=== PATIENT | male | born 1965 | race Two or more races ===

== ENCOUNTER 2024-04-28 05:27 | Day surgery (SDC) | payer OTHER ==
[2024-04-27 08:42] VITALS: BMI 30.4
[2024-04-28] MEDS: ACETAMINOPHEN 325 MG TABLET (FP) ONE (12:32)
[2024-04-28] MEDS ORDERED: ACETAMINOPHEN 325 MG TABLET (FP) PO ONE (13:00)
[2024-04-28] MEDS ORDERED: DEXTROSE 5%-0.45% SALINE 1,000 ML IV SCH (13:30)
[2024-04-28] MEDS ORDERED: PROPOFOL 20 ML ONE (13:42)
[2024-04-28] MEDS ORDERED: MIDAZOLAM HCL 2 MG/2 ML SINGLE DOSE VIAL ONE (13:42)
[2024-04-28] MEDS ORDERED: LIDOCAINE HCL/PF 2% SDV 5ML VIAL ONE (13:42)
[2024-04-28] MEDS: ceFAZolin SODIUM 1 GM VIAL IVPB ONE (14:06)
[2024-04-28] MEDS ORDERED: KETOROLAC TROMETHAMINE 30 MG/1 ML VIAL ONE (14:08)
[2024-04-28] MEDS ORDERED: ONDANSETRON 4 MG/2 ML VIAL ONE (14:08)
[2024-04-28] MEDS ORDERED: ceFAZolin SODIUM 1 GM VIAL ONE (14:08)
[2024-04-28] MEDS ORDERED: DEXAMETHASONE SOD PHOSPHATE 4 MG/1 ML VIAL ONE (14:08)
[2024-04-28] MEDS ORDERED: NALOXONE HCL 0.4 MG/ML VIAL ONE (15:10)
[2024-04-28] MEDS: LACTATED RINGERS SOLUTION 1,000 ML IV SCH (15:15)
[2024-04-28] MEDS ORDERED: ONDANSETRON 4 MG/2 ML VIAL IVPUSH PRN (15:18)
[2024-04-28] MEDS ORDERED: oxyCODONE HCL 5 MG TABLET PO PRN ×2 (15:18)
[2024-04-28] MEDS ORDERED: PROMETHAZINE HCL 25 MG/1 ML VIAL IVPB PRN (15:18)
[2024-04-28] MEDS: ACETAMINOPHEN 1000 MG/100 ML BAG IVPB ONE (16:38)
[2024-04-28 17:46] VITALS: RESP 18
[2024-04-28 18:45] VITALS: BP 133/82; PULSE 73; TEMP 97.5
== END 2024-04-28 18:45 | disposition home or self-care (01) ==
LOC: JASU-SURG 05:27
PROVIDERS: ATTEND Urology
PROC: 0WHR8YZ Insertion of Other Device into Genitourinary Tract, Via Natural or Artificial Opening Endoscopic (ICD-10-PCS; 2024-04-28)
PROC: BT14YZZ Fluoroscopy of Kidneys, Ureters and Bladder using Other Contrast (ICD-10-PCS; principal; 2024-04-28 13:00)
DX: N13.30 Unspecified hydronephrosis (principal); N40.0 Benign prostatic hyperplasia without lower urinary tract symptoms
CPT/HCPCS: 76000-TC-FY; 94760; C2617; J0131